=== PATIENT | female | born 1955 | race Caucasian/White ===

== ENCOUNTER → 2017-07-07 | Day surgery (SDC) | payer BC ==
[2017-06-13 15:12] VITALS: Ht 165.1 cm; Wt 93.2 kg
[~2017-07-07] VITALS: Ht 165.1 cm; Wt 93.2 kg
[~2017-07-07] MED LIST: CITA40TA4 PO; ESTR0.3T PO; GABA-113 PO; GEMF600T PO; IOPAMIDOL INJ 61% 15 ML VIAL ONE; LIDOCAINE HCL 1% MPF 5 ML VIAL ONE; LISI40TA PO; LORA10TA51 PO; MULT-506 PO; OMEG10007 PO; OMEP40CA41 PO; SODIUM CHLORIDE 0.9% INJ 10 ML VIAL ONE; TRAM-10 PO; ZNTT/150 PO
--- NOTE | 2017-07-07 13:13 | History & Physical Bridge - [place] ---
H&P Re-Evaluation Bridge Note: I have examined the patient, reviewed the History & Physical and in the interval since the performance of the History & Physical I have noted the following changes of clinical significance: No changes noted
[2017-07-07 13:36] VITALS: TEMP 36.5
--- NOTE | 2017-07-07 13:46 | Discharge Instructions ---
Discharge Instructions Date of Service Jul 07, 2017. Visit Reason for Visit: Lumbar Radiculopathy Discharge Discharge Diagnosis / Problem: low back pain Discharge Goals Goal(s): Decrease discomfort, Improve function Activity Recommendations Activity Limitations: resume your previous activity Anesthesia . Post Anesthesia Instructions: If you have had General Anesthesia or IV Sedation: * Do not drive today. * Resume driving when surgeon permits. * Do not make important decisions or sign legal documents today. * Call surgeon for: 1. Temperature elevations greater than 101 degrees F. 2. Uncontrollable pain. 3. Excessive bleeding. 4. Persistent nausea and vomiting. 5. Medication intolerance (nausea, vomiting or rash). * For nausea and vomiting use only clear liquids such as: tea, soda, bouillon until nausea subsides, then gradually increase diet as tolerated. * If you have any concerns or questions, call your surgeon's office. If physician is unavailable and it is an emergency, call 911 or go to the nearest emergency room. . Diet Recommendations Recommended Home Diet: resume previous diet Procedures Procedures Performed: LUMBAR EPIDURAL STEROID INJECTION Pending Studies Studies pending at discharge: no Medical Emergencies . Who to Call and When: Medical Emergencies: If at any time you feel your situation is an emergency, please call 911 immediately. . Non-Emergent Contact Non-Emergency issues call your: Specialist . . "Provider Documentation" section prepared by Shaun Baca. .
[2017-07-07 13:50] VITALS: BP 166/86; PULSE 63; O2SAT 99
--- NOTE | 2017-07-07 14:14 | OPERATIVE REPORT ---
DATE OF OPERATION: 07/07/2017 PREOPERATIVE DIAGNOSIS: L5-S1 disc disease with right lower extremity radiculopathy. POSTOPERATIVE DIAGNOSIS: Same. PROCEDURE: Right paramedian L5-S1 intralaminar epidural steroid injection under fluoroscopic guidance. SURGEON: Dr. Shaun Baca. INDICATIONS: The patient is a 61-year-old white female who last underwent an epidural injection in 2011 with 90% relief for a number of years. Recently, the pain has been returning and problematic to her similar to what she experienced in 2012 and she would desire an epidural injection so she could remain functional. PHYSICAL EXAMINATION: GENERAL: Pleasant female seated comfortably in no apparent distress. MUSCULOSKELETAL EXAMINATION: Lumbar paraspinal muscles were palpated. She did not have significant limitations with forward flexion or extension. She had some mild sciatic notch sensitivity on the right, negative seated straight leg raises. CONSENT: Verbal and written consent was obtained from the patient. Risks and benefits were reviewed. Risks include but are not limited to epidural abscess, epidural hematoma, allergic reaction, dural puncture. The patient wishes to proceed. PROCEDURE: The patient was taken back to the special procedures room, she was maintained in a prone position. Backside was cleansed with Betadine x3 and a dry sterile dressing was applied. Fluoroscope was used to identify the L5-S1 intralaminar space. Overlying skin was anesthetized with 4 mL of lidocaine 1% with a 25 gauge 1.5-inch needle. A 22-gauge 3-1/2 inch Tuohy needle was then directed down towards the intralaminar space. It was advanced under lateral fluoroscopic guidance and loss of resistance was noted at a depth of 8 cm. Isovue-300 contrast 1 mL was injected in which demonstrated epidural uptake pattern which was confirmed. She then underwent injection after negative aspiration of 40 mg of Depo-Medrol, 4 mL of preservative free sodium chloride. Injection reproduced a familiar transient radicular sensation down the right leg. DISPOSITION: 1. The patient is taken out into the discharge recovery area where she will be discharged home once discharge criteria have been met. 2. Follow up in the [facility] office in 2-4 weeks. I attest to the content of the Intraoperative Record and any orders documented therein. Any exception s are noted below.
== END | disposition home or self-care (01) ==
LOC: X.SURG 12:11
PROVIDERS: ATTEND Physical Medicine & Rehabilitation
DX: M54.17 Radiculopathy, lumbosacral region (principal); Z82.49 Family history of ischemic heart disease and other diseases of the circulatory system; Z83.3 Family history of diabetes mellitus